=== PATIENT | female | born 1995 | race African-American/Black ===

== ENCOUNTER 2017-08-28 22:18 | Emergency (ER) | payer SELFPAY ==
[2017-08-28 23:54] LABS: ABSOLUTE EOSINOPHILS # (AUTO) 0.2 10^3/uL (0.0-0.6); ABSOLUTE LYMPHOCYTES (AUTO) 2.6 10^3/uL (0.5-4.7); ABSOLUTE MONOCYTES (AUTO) 0.5 10^3/uL (0.1-1.4); ABSOLUTE NEUT (AUTO) 3.3 10^3/uL (1.7-8.2); BASOPHILS % (AUTO) 0.7 % (0-2); EOSINOPHILS % (AUTO) 2.8 % (0-6); HEMATOCRIT 36.6 % (36.0-47.0); HEMOGLOBIN 12.2 g/dL (12.0-15.5); LYMPHOCYTES % (AUTO) 39.5 % (13-45); MEAN CORPUSCULAR HEMOGLOBIN 28.2 pg (27.0-33.4); MEAN CORPUSCULAR HGB CONC 33.2 g/dL (32.0-36.0); MEAN CORPUSCULAR VOLUME 85 fl (80-97); MONOCYTES % (AUTO) 7.3 % (3-13); RED BLOOD COUNT 4.31 10^6/uL (3.72-5.28); RED CELL DISTRIBUTION WIDTH 13.2 % (11.5-14.0); SEGMENTED NEUTROPHILS % (AUTO) 49.7 % (42-78); WHITE BLOOD COUNT 6.7 10^3/uL (4.0-10.5)
--- NOTE | 2017-08-29 01:07 | RADIOLOGY REPORT (SQ) ---
EXAM DESCRIPTION: U/S OB TRANSVAGINAL W/O DOP COMPLETED DATE/TIME: 08/29/2017 12:40 am REASON FOR STUDY: vag bleeding COMPARISON: None. TECHNIQUE: Transvaginal static and realtime grayscale images acquired of the pelvis. Additional iqra cted spectral and color Doppler images recorded. All images stored on PACs. BHC LIMITATIONS: None. FINDINGS: UTERUS: 7.0 cm with a 0.4 cm diameter gestational or pseudo gestational sac with possible decidual reaction, no definite yolk sac, and no pole. If viable, mean sac diameter would corre spond with a gestational age of 5 weeks and 1 day. Cervical length is 2.2 cm. Endometrial stripe th ickness is otherwise 0.8 cm. RIGHT ADNEXA: Normal ovary with normal vascular flow. No adnexal free fluid. 3.4 cm. 1.8 cm likely corpus luteal cyst. LEFT ADNEXA: Normal ovary with normal vascular flow. No adnexal free fluid. No adnexal masses. 2.9 cm. FREE FLUID: None. OTHER: No other significant finding. IMPRESSION: NO DEFINITE INTRA- OR EXTRAUTERINE . POSSIBLE EARLY INTRAUTERINE GESTATIONAL S AC. ECTOPIC CANNOT BE EXCLUDED. FOLLOW-UP ULTRASOUND AND SERIAL BHCG LEVELS STRONGLY RECOMMENDED TO ACCURATELY ASSESS STATU S. COMMENT: HCG levels in early chart *3 weeks: 5-50 mIU/ml *4 weeks: 5-426 mIU/ml *5 weeks: 18-7,340 mIU/ml *6 weeks: 1,080-56,500 mIU/ml *7-8 weeks: 7,560-229,000 mIU/ml *9-12 weeks: 25,700- 288,000 mIU/ml *13-16 weeks: 13,300-254,000 mIU/ml *17-24 weeks: 4,060-165,400 mIU/ml *25-40 weeks: 3,640-117,000 mIU/ml TECHNICAL DOCUMENTATION: JOB ID: [id number]- All Rights Reserved
--- NOTE | 2017-08-29 01:30 | ER Document Report ---
ED General - General Chief Complaint: Vag Bleeding, +preg <12wks Stated Complaint: VAGINAL BLEEDING Time Seen by Provider: 08/28/17 23:03 Notes: Patient is a 22-year-old female at approximately 6 weeks by last menstrual period who presents with 3-4 days of vaginal bleeding and intermittent lower abdominal cramping. She states that the bleeding is the quantity of a typical menstrual cycle. 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 Patient denies anything improves or worsens her symptoms. Her lower abdominal cramping is intermittent, mild in nature. Nothing improves or worsens her symptoms. She has not yet established care. She denies any fever, vomiting or constitutional symptoms. TRAVEL OUTSIDE OF THE [place] IN LAST 30 DAYS: No Past Medical History - General Information source: Patient - Social History Smoking Status: Never Smoker Frequency of alcohol use: None Drug Abuse: None Lives with: Family Family History: Reviewed & Not Pertinent Patient has suicidal ideation: No Patient has homicidal ideation: No Renal/ Medical History: Denies: Hx Peritoneal Dialysis Review of Systems - Review of Systems Notes: Constitutional: Negative for fever. HENT: Negative for sore throat. Eyes: Negative for visual changes. Cardiovascular: Negative for chest pain. Respiratory: Negative for shortness of breath. Gastrointestinal: Positive for abdominal cramping Genitourinary: Positive for vaginal bleeding Musculoskeletal: Negative for back pain. Skin: Negative for rash. Neurological: Negative for headaches, weakness or numbness. 10 point ROS negative except as marked above and in HPI. Physical Exam - Vital signs Vitals: Temp Pulse Resp BP Pulse Ox 98 F 93 16 117/93 H 100 08/28/17 22:55 08/28/17 22:55 08/28/17 22:55 08/28/17 22:55 08/28/17 22:55 Interpretation: Normal Notes: PHYSICAL EXAMINATION: GENERAL: Well-appearing, well-nourished and in no acute distress. HEAD: Atraumatic, normocephalic. EYES: Pupils equal round and reactive to light, extraocular movements intact, sclera anicteric, conjunctiva are normal. ENT: nares patent, oropharynx clear without exudates. Moist mucous membranes. NECK: Normal range of motion, supple without lymphadenopathy LUNGS: Breath sounds clear to auscultation bilaterally and equal. No wheezes rales or rhonchi. HEART: Regular rate and rhythm without murmurs ABDOMEN: Soft, nontender, normoactive bowel sounds. No guarding, no rebound. No masses appreciated. EXTREMITIES: Normal range of motion, no pitting or edema. No cyanosis. NEUROLOGICAL: No focal neurological deficits. Moves all extremities spontaneously and on command. PSYCH: Normal mood, normal affect. SKIN: Warm, Dry, normal turgor, no rashes or lesions noted. Course - Re-evaluation Re-evalutation: 08/29/17 01:29 Patient presents with a mild amount of vaginal bleeding in the setting of an early first trimester . Transvaginal ultrasound is unable to visualize an intrauterine at this time. Quantitative beta hCG below the zone of to margination. No active bleeding at time of presentation. She is Rh positive. Patient's abdominal exam is otherwise benign without any focal tenderness. I do not suspect an acute appendicitis, pyelonephritis, cystitis, or bowel obstruction. At this time I have informed the patient that she needs to return to the emergency department or the women's clinic in 48 hours for recheck of her quantitative beta hCG to assess whether or not this is a normal or a possible ectopic .At this time will discharge with return precautions and follow-up recommendations. Verbal discharge instructions given a the bedside and opportunity for questions given. Medication warnings reviewed. Patient is in agreement with this plan and has verbalized understanding of return precautions and the need for primary care follow-up in the next 24-72 hours. - Vital Signs Vital signs: Temp Pulse Resp BP Pulse Ox 98 F 93 16 117/93 H 100 08/28/17 22:55 08/28/17 22:55 08/28/17 22:55 08/28/17 22:55 08/28/17 22:55 - Laboratory Result Diagrams: 08/28/17 23:40 Laboratory results interpreted by me: 08/28/17 23:40 Beta HCG, Quant 570.18 H - Diagnostic Test Radiology reviewed: Reports reviewed Discharge - Discharge Clinical Impression: of unknown anatomic location, Vaginal bleeding during , antepartum Condition: Good Disposition: HOME, SELF-CARE Additional Instructions: You need to return to the ED or the women's health clinic in 48 hours for a recheck of your hormone level. The ultrasound is unable to see anything at this time because you are too early in your . Please return if you develop severe abdominal pain, bleeding that goes through more than 2 pads for more than 2 hours, pass out, or have any other symptoms that are concerning to you. Please follow-up closely with your OBGYN regarding todays visit. Referrals: HUMA KIRKPATRICK MD [ACTIVE STAFF] - 08/31/17
[2017-08-29 01:43] VITALS: BP 121/75
== END 2017-08-29 01:43 | disposition home or self-care (01) ==
LOC: ER 22:18
DX: O46.91 Antepartum hemorrhage, unspecified, first trimester (principal); Z3A.01 Less than 8 weeks gestation of pregnancy
CPT/HCPCS: 36415; 76817; 84702; 85025; 86900; 86901; 99284